=== PATIENT | female | born 1945 | race Caucasian/White ===

== ENCOUNTER 2021-02-22 07:39 | Outpatient (REF) | payer MEDICARE, OTHER, SELFPAY ==
[2021-02-22 11:20] LABS: MANUAL DIFF FLAG NO
[2021-02-22 11:34] LABS: Basophils Absolute Auto 0.1 X10*3/uL (0.0-0.2); Basophils Percent Auto 1.2 % (0-2); Eosinophils Absolute Auto 0.1 X10*3/uL (0.0-0.4); Eosinophils Percent Auto 2.1 % (0-4); Hematocrit 42.5 % (37-47); Hemoglobin 13.8 g/dl (12.0-16.0); Imm Gran Abs Auto 0.01 X10*3/uL (0.00-0.03); Imm Gran Pct Auto 0.2 % (0.0-0.4); Lymphocytes Absolute Auto 0.8 X10*3/uL (1.2-4.9); Lymphocytes Percent Auto 18.5 % (20-40); Mean Corpuscular HGB Conc 32.5 g/dl (31.0-35.0); Mean Corpuscular Hemoglobin 28.9 pg (27.0-33.0); Mean Corpuscular Volume 89.1 fL (80-98); Mean Platelet Volume 10.1 fL (9.4-12.3); Monocytes Absolute Auto 0.3 X10*3/uL (0.1-1.2); Platelet Count 235 X10*3/uL (160-400); Red Blood Count 4.77 X10*6/uL (4.20-5.50); Red Cell Distribution Width 12.8 % (11.0-16.0); White Blood Count 4.3 X10*3/uL (4.8-10.8)
[2021-02-22 12:04] LABS: Thyroid Stimulating Hormone 1.78 uIU/mL (0.32-4.0); Vitamin D 25-OH Total 45.5 ng/mL (>30)
[2021-02-22 12:07] LABS: Alanine Aminotransferase 17 U/L (0-31); Albumin Level 4.3 g/dL (3.5-5.0); Alkaline Phosphatase 58 U/L (39-117); Anion Gap 13 (12-20); Aspartate Amino Transferase 16 U/L (5-31); Bilirubin Total 0.5 mg/dL (0.0-1.0); Blood Urea Nitrogen 13 mg/dL (9-16); Calcium 8.9 mg/dL (8.4-10.2); Carbon Dioxide 26 mmol/L (22-29); Chloride 107 mmol/L (96-108); Cholesterol 208 mg/dL; Estimated Glomerular Filt Rate > 60; Glucose Fasting 83 mg/dL (60-99); HDL Cholesterol 92 mg/dL; LDL Cholesterol Calculated 95 mg/dl; Potassium 4.4 mmol/L (3.3-5.1); Sodium 142 mmol/L (135-145); Total Protein 6.6 g/dL (6.5-8.0); Triglycerides 106 mg/dL
[2021-02-23 13:37] LABS: Calcium (PTHI) 8.9 mg/dL (8.6-10.4); PTHI 60 pg/mL (14-64)
== END 2021-02-22 07:40 | disposition home or self-care (01) ==
LOC: HO.HMGCLDS 07:39
PROVIDERS: Absent Provider Obstetrics & Gynecology; PCP Internal Medicine; Visit Provider Internal Medicine
DX: E78.00 Pure hypercholesterolemia, unspecified (principal); E03.9 Hypothyroidism, unspecified; K58.0 Irritable bowel syndrome with diarrhea; M81.0 Age-related osteoporosis without current pathological fracture
CPT/HCPCS: 36415; 80053; 80061; 82306; 83970; 84443; 85025

== ENCOUNTER 2022-07-27 08:17 | Outpatient (REF) | payer MEDICARE, OTHER, SELFPAY ==
[2022-07-27 11:08] LABS: MANUAL DIFF FLAG NO
[2022-07-27 11:28] LABS: Basophils Absolute Auto 0.1 X10*3/uL (0.0-0.2); Basophils Percent Auto 1.5 % (0-2); Eosinophils Absolute Auto 0.1 X10*3/uL (0.0-0.4); Eosinophils Percent Auto 3.2 % (0-4); Hematocrit 40.6 % (37.0-47.0); Hemoglobin 13.5 g/dl (12.0-16.0); Imm Gran Abs Auto 0.01 X10*3/uL (0.00-0.03); Imm Gran Pct Auto 0.2 % (0.0-0.4); Lymphocytes Absolute Auto 0.9 X10*3/uL (1.2-4.9); Lymphocytes Percent Auto 22.4 % (20-40); Mean Corpuscular HGB Conc 33.3 g/dl (31.0-35.0); Mean Corpuscular Hemoglobin 29.9 pg (27.0-33.0); Mean Corpuscular Volume 89.8 fL (80.0-98.0); Mean Platelet Volume 10.4 fL (9.4-12.3); Monocytes Absolute Auto 0.3 X10*3/uL (0.1-1.2); Monocytes Percent Auto 7.5 % (2-11); Neutrophils Absolute Auto 2.6 x10*3/uL (2.0-8.3); Neutrophils Percent Auto 65.2 % (45-73); Platelet Count 216 X10*3/uL (160-400); Red Blood Count 4.52 X10*6/uL (4.20-5.50); Red Cell Distribution Width 12.9 % (11.0-16.0)
[2022-07-27 11:34] LABS: Alanine Aminotransferase 17 U/L (0-31); Aspartate Amino Transferase 15 U/L (5-31); Estimated Glomerular Filt Rate > 60
[2022-07-27 11:41] LABS: Alanine Aminotransferase 18 U/L (0-31); Albumin Level 4.1 g/dL (3.5-5.0); Alkaline Phosphatase 58 U/L (39-117); Anion Gap 13 (12-20); Aspartate Amino Transferase 18 U/L (5-31); Bilirubin Total 0.3 mg/dL (0.0-1.0); Blood Urea Nitrogen 16 mg/dL (9-16); Calcium 9.2 mg/dL (8.4-10.2); Carbon Dioxide 28 mmol/L (22-29); Chloride 107 mmol/L (96-108); Cholesterol 200 mg/dL; Estimated Glomerular Filt Rate > 60; Glucose Fasting 95 mg/dL (60-99); HDL Cholesterol 83 mg/dL; LDL Cholesterol Calculated 101 mg/dl; Potassium 4.5 mmol/L (3.3-5.1); Sodium 143 mmol/L (135-145); Total Protein 6.4 g/dL (6.5-8.0); Triglycerides 82 mg/dL
[2022-07-27 12:04] LABS: Thyroid Stimulating Hormone 1.31 uIU/mL (0.32-4.0); Vitamin D 25-OH Total 56.1 ng/mL (>30)
== END 2022-07-27 08:18 | disposition home or self-care (01) ==
LOC: HO.HMGCLDS 08:17
PROVIDERS: Absent Provider Internal Medicine Rheumatology; PCP Internal Medicine; Visit Provider Internal Medicine
DX: M19.90 Unspecified osteoarthritis, unspecified site (principal); E78.00 Pure hypercholesterolemia, unspecified; E03.9 Hypothyroidism, unspecified; M79.7 Fibromyalgia; K58.0 Irritable bowel syndrome with diarrhea; F32.4 Major depressive disorder, single episode, in partial remission; M81.0 Age-related osteoporosis without current pathological fracture; Z79.1 Long term (current) use of non-steroidal anti-inflammatories (NSAID)
CPT/HCPCS: 36415; 80053; 80061; 82306; 82565; 84443; 84450; 84460; 85025

== ENCOUNTER 2023-09-05 08:04 | Outpatient (REF) | payer MEDICARE, OTHER, SELFPAY ==
[2023-09-05 11:31] LABS: MANUAL DIFF FLAG NO
[2023-09-05 11:34] LABS: Basophils Absolute Auto 0.1 X10*3/uL (0.0-0.2); Basophils Percent Auto 1.1 % (0-2); Eosinophils Absolute Auto 0.1 X10*3/uL (0.0-0.4); Eosinophils Percent Auto 2.5 % (0-4); Hematocrit 43.2 % (37.0-47.0); Hemoglobin 14.2 g/dl (12.0-16.0); Imm Gran Abs Auto 0.01 X10*3/uL (0.00-0.03); Imm Gran Pct Auto 0.2 % (0.0-0.4); Lymphocytes Absolute Auto 1.1 X10*3/uL (1.2-4.9); Lymphocytes Percent Auto 23.6 % (20-40); Mean Corpuscular HGB Conc 32.9 g/dl (31.0-35.0); Mean Corpuscular Hemoglobin 29.5 pg (27.0-33.0); Mean Corpuscular Volume 89.8 fL (80.0-98.0); Mean Platelet Volume 10.7 fL (9.4-12.3); Monocytes Absolute Auto 0.3 X10*3/uL (0.1-1.2); Monocytes Percent Auto 7.2 % (2-11); Neutrophils Absolute Auto 2.9 x10*3/uL (2.0-8.3); Neutrophils Percent Auto 65.4 % (45-73); Platelet Count 210 X10*3/uL (160-400); Red Blood Count 4.81 X10*6/uL (4.20-5.50); Red Cell Distribution Width 13.1 % (11.0-16.0); White Blood Count 4.5 X10*3/uL (4.8-10.8)
[2023-09-05 12:49] LABS: Alanine Aminotransferase 20 U/L (0-31); Albumin Level 4.2 g/dL (3.5-5.0); Alkaline Phosphatase 60 U/L (39-117); Anion Gap 12 (12-20); Aspartate Amino Transferase 18 U/L (5-31); Bilirubin Total 0.4 mg/dL (0.0-1.0); Blood Urea Nitrogen 14 mg/dL (9-16); Calcium 9.5 mg/dL (8.4-10.2); Carbon Dioxide 25 mmol/L (22-29); Chloride 109 mmol/L (96-108); Cholesterol 205 mg/dL (<200); Estimated Glomerular Filt Rate > 60; Glucose Fasting 98 mg/dL (60-99); HDL Cholesterol 90 mg/dL (>40); LDL Cholesterol Calculated 100 mg/dL (<100); Potassium 4.5 mmol/L (3.3-5.1); Sodium 141 mmol/L (135-145); Thyroid Stimulating Hormone 2.06 uIU/mL (0.32-4.0); Total Protein 6.8 g/dL (6.5-8.0); Triglycerides 78 mg/dL (<150)
== END 2023-09-05 08:05 | disposition home or self-care (01) ==
LOC: HO.HMGCLDS 08:04
PROVIDERS: PCP Internal Medicine; Visit Provider Internal Medicine
DX: E78.00 Pure hypercholesterolemia, unspecified (principal); E03.9 Hypothyroidism, unspecified; M79.7 Fibromyalgia; K58.0 Irritable bowel syndrome with diarrhea
CPT/HCPCS: 36415; 80053; 80061; 84443; 85025

== ENCOUNTER 2024-07-17 11:05 | Outpatient (AMB) | payer MEDICARE, OTHER, SELFPAY ==
--- NOTE | 2024-07-17 11:10 | AM.OFFWIN_ITS ---
Intake Vital Signs 07/17/24 11:13 Height 5 ft 2 in Weight 148 lb BMI 27.1 BP 122/80 Blood Pressure Location Rt brachial Position Sitting Pulse 89 Pulse Source Pulse Oximeter Temp 98.4 F Temp Source Oral Pulse Oximetry (%) 96 Oxygen Delivery Method Room Air Intake Visit Reasons: EP-tooth problem & covid? Intake Note: pt c/o bit through lip after fall this morning on floor at home. and ? Covid infection Patient Tobacco Use Status: Never used Tobacco Allergies No Known Allergies Allergy (Verified 07/17/24 11:10) Do you need a note to return to daycare/school/sports/work: No HPI HPI Comments History of Present Illness Details Patient is a 79-year-old female complaining of an injury to her lower lip that occurred when she tripped over her dog's just prior to arrival today. She states she cut her lip but that her teeth and gums feel fine. It still bleeding a little bit. She also states she has recently had a dry cough for the last few days. She is asking us to test her for COVID. [facility] Social History Patient Tobacco Use Status: Never used Tobacco Review of Systems Const All systems reviewed & are unremarkable except as noted in HPI and below Physical Exam Vital Signs: Last Vital Signs Temp 98.4 F 07/17/24 11:13 Pulse 89 07/17/24 11:13 BP 122/80 07/17/24 11:13 Pulse Ox 96 07/17/24 11:13 Oxygen Delivery Method Room Air 07/17/24 11:13 BMI result Body Mass Index 27.1 Const General: cooperative, healthy appearing, comfortable, no acute distress and well developed Orientation/consciousness: patient oriented x3 Limitations: no limitations HEENT Head: Yes normal to inspection Neck Neck: Yes normal visual inspection and Yes supple Skin Other: v shaped laceration through lower lip to inner lip. does not cross the vermilion border, no injury to the teeth or gums Neuro General: patient oriented x3 Office Procedures Laceration Repair Details: repaired inner lip with 3 (three) 5.0 Monocryl sutures, irrigated with normal saline then injected 2.5 mL of 1% lidocaine without epi then completed repair with 3 sutures Explained risks and benefits to parent: Yes Informed consent given: Yes Location: Lower inner lip Length: 2 cm Anesthesia: 2% lidocaine Irrigation: saline Deep closure: No Skin closure: nylon Technique: simple interrupted Patient tolerated procedure: [place]: [place] [id number]-[id number] Repair face/ears/eyes/nose/lips <2.5cm Procedure code (CPT) selection complete Laceration Repair Details: repaired outer lip with 3 (three) 5.0 Monocryl sutures, cleaned with alcohol wipe, irrigated with normal saline then injected 2.5 mL of 1% lidocaine without epi then completed repair with 3 sutures Inner lip repair performed by Rach Gaston NP, see that lac repair note Laceration repair performed by: Lilian Reid Explained risks and benefits to parent: Yes Informed consent given: Yes Consent signed: No Location: lower outer lip Length: 2.5c Sedation: No Anesthesia: 1% lidocaine Irrigation: saline Preparation: other (Alcohol way) Wound exploration: none Deep closure: No Skin closure: nylon Technique: 3 sutures Topical treatment: dry Tetanus toxoid ordered: Yes Patient tolerated procedure: well [place]: [place] [address]-Ohts Repair face/ears/eyes/nose/lips <2.5cm Procedure code (CPT) selection complete Assessment & Plan Assessment & Plan (1) Lip laceration: Code(s): S01.511A - Laceration without foreign body of lip, initial encounter Qualifiers: Encounter type: initial encounter Qualified Code(s): S01.511A - Laceration without foreign body of lip, initial encounter Plan: Gave Tdap and amoxicillin for prophylaxis. Patient given precautions as below. Patient should return in 5 days for removal of sutures Plan see above Orders: Orders SARS-CoV2/FLU/RSV Today Rach Gaston NP J06.9 - Acute upper respiratory infection, unspecified TDaP Immunization Today Lilian Reid PA-C S01.511A - Laceration without foreign body of lip, initial encounter Medications: New amoxicillin-pot clavulanate 875-125 mg 1 tab PO Q12H 8 tabs 0RF Lilian Reid PA-C Patient Instructions: ?Eat soft foods for two to three days. ?Rinse the mouth with water after eating. ?Avoid spicy or salty foods until the wound is healed. ?Avoid the use of straws (negative pressure may increase ecchymosis or bleeding at the wound site). come back for suture removal in 5 days Coding Level of Care Code New Pt Level 4 (00063) Diagnoses Lip laceration, initial encounter S01.511A Encounter type: initial encounter
[2024-07-17 11:13] VITALS: BP 122/80; PULSE 89; TEMP 36.9; O2SAT 96; BMI 27.1
== END 2024-07-17 13:24 | disposition home or self-care (01) ==
PROVIDERS: PCP Internal Medicine; Visit Provider Registered Nurse
DX: S01.511A Laceration without foreign body of lip, initial encounter (principal); Z23 Encounter for immunization
CPT/HCPCS: 90471; 90715; 99204

== ENCOUNTER 2024-07-17 11:55 | Outpatient (REF) | payer MEDICARE, OTHER, SELFPAY ==
[2024-07-17 14:03] LABS: Influenza A PCR NEGATIVE (Negative); Influenza B PCR NEGATIVE (Negative); Resp Syncy Virus RNA Qual PCR NEGATIVE (Negative); SARS COV2 PCR INHOUSE POSITIVE (Negative)
== END 2024-07-17 11:56 | disposition home or self-care (01) ==
LOC: HO.LAB 11:55
PROVIDERS: Visit Provider Registered Nurse
DX: J06.9 Acute upper respiratory infection, unspecified (principal)
CPT/HCPCS: 0241U

== ENCOUNTER 2024-07-22 10:06 | Outpatient (AMB) | payer MEDICARE, OTHER, SELFPAY ==
--- NOTE | 2024-07-22 10:25 | MHC.OFFWIV ---
Intake Vital Signs 07/22/24 10:26 Height 5 ft 2 in Weight 148 lb BMI 27.1 BP 110/68 Blood Pressure Location Rt brachial Position Sitting Pulse 81 Pulse Source Pulse Oximeter Temp 98.3 F Temp Source Oral Pulse Oximetry (%) 96 Oxygen Delivery Method Room Air Intake Visit Reasons: EP stitch removal Intake Note: pt here for suture removal Patient Tobacco Use Status: Never used Tobacco Allergies No Known Allergies Allergy (Verified 07/22/24 10:25) Medication List - Last Reconciled 07/22/24 by Josephine Gaines MD bupropion HCl SR 200 mg PO QAM celecoxib 200 mg PO DAILY PRN diazepam 5 mg PO DAILY PRN dicyclomine 20 mg PO BID levothyroxine 50 mcg PO DAILY rosuvastatin 10 mg PO BEDTIME sertraline mg PO trazodone 50 mg PO BEDTIME Do you need a note to return to daycare/school/sports/work: No HPI EP stitch removal HPI Details Patient is 79-year-old female came in today for suture removal Sutures were placed in her side of her lip and outside 5 days ago I was able to remove 4 stitches However the stitches inside the mouth to remaining seem to be infected I am prescribing antibiotic to be taken for 3 days patient is to return on Sunday for other 2 sutures to be removed Meanwhile I would recommend to swish and spit with salt and water 3 or 4 times a day Tetanus vaccine is up-to-date [facility] Social History Patient Tobacco Use Status: Never used Tobacco Review of Systems Const All systems reviewed & are unremarkable except as noted in HPI and below Physical Exam Vital Signs: Last Vital Signs Temp 98.3 F 07/22/24 10:26 Pulse 81 07/22/24 10:26 BP 110/68 07/22/24 10:26 Pulse Ox 96 07/22/24 10:26 Oxygen Delivery Method Room Air 07/22/24 10:26 BMI result Body Mass Index 27.1 Const General: no acute distress Orientation/consciousness: patient oriented x3 HEENT Other: 4 sutures removed to remaining inside lower lip Around the sutures there is yellowish discharge Eyes General: appearance normal, both eyes and all related structures Resp Effort & Inspection: normal respiratory effort and able to speak in complete sentences Neuro General: patient oriented x3 Psych Mental Status: mental status grossly normal Assessment & Plan Assessment & Plan (1) Visit for suture removal: Code(s): Z48.02 - Encounter for removal of sutures (2) Infected lip laceration: Code(s): S01.511A - Laceration without foreign body of lip, initial encounter; L08.9 - Local infection of the skin and subcutaneous tissue, unspecified Qualifiers: Encounter type: initial encounter Qualified Code(s): S01.511A - Laceration without foreign body of lip, initial encounter; L08.9 - Local infection of the skin and subcutaneous tissue, unspecified Plan Patient is 79-year-old female came in today for suture removal Sutures were placed in her side of her lip and outside 5 days ago I was able to remove 4 stitches However the stitches inside the mouth to remaining seem to be infected I am prescribing antibiotic to be taken for 3 days patient is to return on Sunday for other 2 sutures to be removed Meanwhile I would recommend to swish and spit with salt and water 3 or 4 times a day Tetanus vaccine is up-to-date Medications: Changed From amoxicillin-pot clavulanate 875-125 mg 1 tab PO Q12H 8 tabs 0RF To amoxicillin-pot clavulanate 875-125 mg 1 tab PO Q12H 6 tabs 0RF 3 days Coding Level of Care Code Est Pt Level 3 (67637) Diagnoses Visit for suture removal Z48.02 Infected lip laceration, initial encounter S01.511A; L08.9 Encounter type: initial encounter
[2024-07-22 10:26] VITALS: BP 110/68; PULSE 81; TEMP 36.8; O2SAT 96; BMI 27.1
== END 2024-07-22 10:44 | disposition home or self-care (01) ==
PROVIDERS: PCP Internal Medicine; Visit Provider Internal Medicine
DX: Z48.02 Encounter for removal of sutures (principal); S01.511A Laceration without foreign body of lip, initial encounter; L08.9 Local infection of the skin and subcutaneous tissue, unspecified
CPT/HCPCS: 99024

== ENCOUNTER 2024-07-25 09:43 | Outpatient (AMB) | payer MEDICARE, OTHER, SELFPAY ==
--- NOTE | 2024-07-25 09:56 | AM.OFFWIN_ITS ---
Intake Vital Signs 07/25/24 09:57 Height 5 ft 2 in Weight 148 lb BMI 27.1 BP 130/70 Blood Pressure Location Rt brachial Position Sitting Pulse 83 Pulse Source Pulse Oximeter Pulse Oximetry (%) 97 Oxygen Delivery Method Room Air Intake Visit Reasons: EP Stitch removal Patient Tobacco Use Status: Never used Tobacco Allergies No Known Allergies Allergy (Verified 07/22/24 10:25) Do you need a note to return to daycare/school/sports/work: No HPI EP Stitch removal HPI Details This is a 79-year-old female patient who presents to the walk-in clinic today for stitch removal in her lip. She was initially seen on 07/17 with lip laceration following a fall. Laceration was sutured. She was given Tdap, and started on Augmentin prophylactically. She returned several days ago on 07/22, due to possible infection at injury/suture site. Several stitches were removed at that time. She was given 3 additional days of abx and asked to return today for remaining 2 stitches to be removed. She is feeling well and is eager to have these removed. She denies any pain in area. She denies any fever or chills or swelling in the mouth. [facility] Social History Patient Tobacco Use Status: Never used Tobacco Review of Systems Const All systems reviewed & are unremarkable except as noted in HPI and below Physical Exam Vital Signs: Last Vital Signs Pulse 83 07/25/24 09:57 BP 130/70 07/25/24 09:57 Pulse Ox 97 07/25/24 09:57 Oxygen Delivery Method Room Air 07/25/24 09:57 BMI result Body Mass Index 27.1 Const General: no acute distress Orientation/consciousness: patient oriented x3 HEENT Other: 2 sutures removed from inside of lower lip without complication. No surrounding redness, swelling, tenderness, or discharge. Eyes General: appearance normal, both eyes and all related structures Resp Effort & Inspection: normal respiratory effort and able to speak in complete sentences Neuro General: patient oriented x3 Psych Appearance: grossly normal Mental Status: mental status grossly normal Assessment & Plan Assessment & Plan (1) Lip laceration: Code(s): S01.511A - Laceration without foreign body of lip, initial encounter Qualifiers: Encounter type: initial encounter Qualified Code(s): S01.511A - Laceration without foreign body of lip, initial encounter Plan: Last 2 sutures easily removed from patient's inner lower lip in the office today. She tolerate this well. Advised to continue to swish warm/salty water for another several days. Reviewed indications to return to the clinic for further evaluation, including development of pain, swelling, tenderness, discharge of previously sutured area. She verbalizes understanding and agrees to plan. (2) Visit for suture removal: Code(s): Z48.02 - Encounter for removal of sutures Plan: Sutures removed as above. Coding Level of Care Code Est Pt Level 3 (92233) Diagnoses Lip laceration, initial encounter S01.511A Encounter type: initial encounter Visit for suture removal Z48.02
[2024-07-25 09:57] VITALS: BP 130/70; PULSE 83; O2SAT 97; BMI 27.1
== END 2024-07-25 10:52 | disposition home or self-care (01) ==
PROVIDERS: PCP Internal Medicine; Visit Provider Nurse Practitioner Family
DX: S01.511D Laceration without foreign body of lip, subsequent encounter (principal); Z48.02 Encounter for removal of sutures
CPT/HCPCS: 15853; 99213

== ENCOUNTER 2024-12-19 07:51 | Outpatient (REF) | payer MEDICARE, OTHER, SELFPAY ==
--- OUTSIDE RECORDS SUMMARY | 2024-12-19 07:55 | XMS_ITS ---
Author Organization Trip Veloz DO, [facility] Address [address], [place] [id number] Care Team Providers Care Power Press Tender Name Role Phone Trip Veloz Primary Care Provider ALLERGIES No Known Allergies REASON FOR VISIT 6 month f/u, Follow up hypercholesterolemia, hypothyroidism MEDICATIONS Medication SIG (Take, Route, Frequency, Duration) Notes Start Date End Date Status Sertraline HCl 100 MG 3 tablets Orally O nce a day for 90 days Active Rosuvastatin Calcium 10 MG 1 tablet Oral ly Once a day Active Sertraline HCl 100 MG 3 tablets Orally O nce a day for 30 day(s) 03/12/2024 Active Dicyclomine HCl 20 MG 1 tablet as needed Orally Twice a day for 30 days Active Librax 5-2.5 MG 1 capsule Orally Onc e a day Active CeleBREX 200 MG 1 capsule as needed Orally Once a day Active diazePAM 5 MG 1 tablet as needed Orally Once a day at night 09/12/2023 Active oxyCODONE-Acetaminophen 5-325 MG 1 tablet as needed Orally every 6 hrs 03/08/2022 Active buPROPion HCl ER (SR) 200 MG 1 tablet in the morning Orally Once a day Active traZODone HCl 50 MG 1 tablet at bedtime Orally Once a day Active Levothyroxine Sodium 50 MCG 1 tablet in the morning on an empty stomach Orally Once a day Active Vitamin D 50 MCG (1999) 1 capsule Ora lly Once a day Active Cetirizine HCl 10 MG 1 tablet Orally Onc e a day Active SOCIAL HISTORY Tobacco Use: Social History Observation Description Date Details (start date - stop date) Never Smoker NA - NA Sex Assigned At : Social History Observation Description Sex Assigned At Unknown Tobacco Use/Smoking Question Answer Notes Patient is a nonsmoker Additional Findings: Tobacco Non-User Cu rrent non-smoker, currently using no form of tobacco Alcohol Screen Question Answer Notes Did you have a drink contain ing alcohol in the past year? Yes How often did you have a dri nk containing alcohol in the past year? Monthly or less (1 point) How many drinks did you have on a typical day when you were drinking in the past year? 1 or 2 drinks (0 point) How often did you have 6 or more drinks on one occasion in the past year? Never (0 point) Points 1 Interpretation Negative VITAL SIGNS BMI 27.07 kg/m2 03/12/2024 Blood pressure systolic 114 mm Hg 03/12/20 24 Blood pressure diastolic 74 mm Hg 024 Height 62.00 in 03/12/2024 Weight 148 lbs 03/12/2024 Encounters Encounter Location Date Provider Diagnosis Trip Veloz DO, [address] [id number] 03/12/2024 Trip Veloz Hypercholesterolemia E78.00 ; Acquired hypothyroidism E03.9 ; Irritable bowel syndrome with diarrhea K58.0 ; Fibromyalgia M79.7 ; Osteoporosis, unspecified osteoporosis type, unspecified pathological fracture presence M81.0 and Major depressive disorder with single episode, 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 ASSESSMENTS Encounter Date Diagnosis Assessment Notes Treatment Notes Treatment Clinical Notes 03/12/2024 Hypercholesterolemia (ICD-10 - E78.00) 03/12/2024 Acquired hypothyroid ism (ICD-10 - E03.9) 03/12/2024 Irritable bowel synd vincent with diarrhea (ICD-10 - K58.0) 03/12/2024 Fibromyalgia (ICD-10 - M79.7) 03/12/2024 Osteoporosis, unspec ified osteoporosis type, unspecified pathological fracture presence (ICD-10 - M81.0) 03/12/2024 Major depressive dis order with single episode, in partial remission (ICD-10 - F32.4) PLAN OF TREATMENT Medication Medication Name Sig Start Date Stop Date Notes Rosuvastatin Calcium 10 MG 1 tablet Orally Once a day Sertraline HCl 100 MG 3 tablets Orally O nce a day for 30 day(s) 03/12/2024 Dicyclomine HCl 20 MG 1 tablet as needed Orally Twice a day for 30 days Librax 5-2.5 MG 1 capsule Orally Onc e a day CeleBREX 200 MG 1 capsule as needed Orally Once a day diazePAM 5 MG 1 tablet as needed O rally Once a day at night 09/12/2023 oxyCODONE-Acetaminophen 5-325 MG 1 table t as needed Orally every 6 hrs 03/08/2022 buPROPion HCl ER (SR) 200 MG 1 tablet in the morning Orally Once a day traZODone HCl 50 MG 1 tablet at bedtime Orally Once a day Levothyroxine Sodium 50 MCG 1 tablet in the morning on an empty stomach Orally Once a day Vitamin D 50 MCG (1999 UT) 1 capsule Ora lly Once a day Cetirizine HCl 10 MG 1 tablet Orally Once a day Next Appt Details Follow Up: 6 Months, Reason: follow up visit Progress Notes * Examination Category Sub-Category Detail Notes General Examination GENERAL APPEARANCE: in no ac [place] distress, well developed, well nourished HEAD: normocephalic, atrau matic HEART: no murmurs, regular rate and rhythm, S1, S2 normal LUNGS: clear to auscultatio n bilaterally ABDOMEN: normal, bowel sounds present, soft, nontender, nondistended SKIN: warm and dry EXTREMITIES: no edema PSYCH: alert, oriented, cog nitive function intact History and Physical Notes * HPI (History of Present Illness) Category Sub-Category Detail Notes Depression Screening PHQ-9 Little inte rest or pleasure in doing things: Not at all Feeling down, depressed, or hopeless: No t at all Trouble falling or staying asleep, or sl eeping too much: Not at all Feeling tired or having little energy: N ot at all Poor appetite or overeating: Not at all Feeling bad about yourself o r that you are a failure, or have let yourself or your family down: Not at all Trouble concentrating on thi ngs, such as reading the newspaper or watching television: Not at all Moving or speaking so slowly that other people could have noticed; or the opposite, being so fidgety or restless that you have been moving around a lot more than usual: Not at all Thoughts that you would be b nica off or of hurting yourself in some way: Not at all Total Score: 0 Interpretation and Intervention Depression Rudie catalina Findings: Negative Follow-Up for Depression: : Review of PH Q-9 found negative result; no follow-up needed Treatment Goals Continue current med ication Self-Managment Goals Exercise at least 3 xs per week Fall Risk Fall History Have you had two or more fal ls in the past year?: No Have you had any falls with injury in th e past year?: No Fall Risk Assessment:: No falls in the p ast year Communication Needs [facility] Communication Needs - [facility] Hearing Impairment?: Yes wears hearing aids Vision Impairment?: Yes wears glasses Cognitive Impairment?: No SDOH Questions SDOH Questions In the past year have you been worried about losing your housing?: No In the past year have you or any family members you live with been unable to get any of the following when it was really needed? Check all that apply:: None
--- OUTSIDE RECORDS SUMMARY | 2024-12-19 07:55 | XMS_ITS | Patient Health Record ---
Author Organization Trip Veloz DO, [facility] Address [address], [place] [id number] Care Team Providers Care Wind Commissioning Technician Name Role Phone Trip Veloz Primary Care Provider [phone] ALLERGIES No Known Allergies REASON FOR REFERRAL No Information MEDICATIONS Medication SIG (Take, Route, Frequency, Duration) Notes Start Date End Date Status diazePAM 5 MG 1 tablet as needed Orally Once a day at night 09/12/2023 Active oxyCODONE-Acetaminophen 5-325 MG 1 tablet as needed Orally every 6 hrs 03/08/2022 Active CeleBREX 200 MG 1 capsule as needed Orally Once a day Active Vitamin D 50 MCG (1999 UT) 1 capsule Ora lly Once a day Active Rosuvastatin Calcium 10 MG 1 tablet Oral ly Once a day for 90 days Active Cetirizine HCl 10 MG 1 tablet Orally Onc e a day Active Rosuvastatin Calcium 10 MG 1 tablet Oral ly Once a day for 30 day(s) 09/17/2024 Active Levothyroxine Sodium 50 MCG 1 tablet in the morning on an empty stomach Orally Once a day for 90 days Active buPROPion HCl ER (SR) 200 MG 1 tablet in the morning Orally Once a day Active Dicyclomine HCl 20 MG 1 tablet Orally On ce a day Active Sertraline HCl 100 MG 3 tablets Orally O nce a day Active traZODone HCl 50 MG 1 tablet at bedtime Orally Once a day for 90 days Active IMMUNIZATIONS Vaccine Route Administration Date Status Comme nts Td (adult) Unknown 01/12/2010 Administered DECLINE: Influenza Unknown 02/04/2014 Administered DECLINE: Pneumococcal Unknown 02/04/2014 Administered Pneumococcal - PPSV23 IM Intramuscular 09/29/2014 Administ ered Influenza Quad IM Intramuscular 08/22/2019 Administered Influenza High Dose IM Intramuscular 08/31/2021 Administer ed Influnza High Dose Quad Unknown 07/22/2020 Administered COVID-19 Pfizer BioNTech Unknown 08/18/2021 Administere d COVID-19 Pfizer BioNTech Unknown 02/05/2021 Administere d COVID-19 Pfizer BioNTech Unknown 01/15/2021 Administere d COVID-19 Pfizer Bivalent Unknown 08/03/2022 Administere d COVID-19 Pfizer BioNTech Unknown 03/23/2022 Administere d Influenza Quad IM Intramuscular 09/06/2022 Administered Influenza High Dose IM Intramuscular 09/12/2023 Administer ed TDaP Unknown 07/17/2024 Administered Influenza Unknown 09/29/2014 Refused Influenza Unknown 12/21/2015 Refused Influenza Unknown 08/01/2016 Refused Influenza Unknown 10/31/2017 Refused Influenza Unknown 11/01/2018 Refused SOCIAL HISTORY Tobacco Use: Social History Observation [...] Never (0 point) Points 1 Interpretation Negative PROBLEMS Problem Type ICD Code Onset Dates Problem Status W/U Status Risk SNOMED Code Notes Problem Fibromyalgia (M79.7) Active confirmed 2 5762109 Problem Unspecified hearing loss, left ear (H91.92) Active confirmed Hear ing loss (69333646) Problem Irritable bowel syndrome with diarrhea (K58.0) Active confirmed 373253169 Problem Acquired hypothyroid ism (E03.9) Active confirmed 227216496 Problem Major depressive disorder with single episode, in partial remission (F32.4) Active confirmed 00090267 Problem Hypercholesterolemia (E78.00) Active confirmed 52966350 Problem Osteoporosis, unspecified osteoporosis type, unspecified pathological fracture presence (M81.0) Active confirmed 61320556 VITAL SIGNS Blood pressure diastolic 70 mm Hg 09/17/2024 Height 62.00 in 09/17/2024 Blood pressure systolic 132 mm Hg 09/17/2024 Weight 151 lbs 09/17/2024 BMI 27.62 kg/m2 09/17/2024 Encounters Encounter Location Date Provider Diagnosis Trip Mustafa Magdiel ROBBINS, [facility] [address], [place] [id number] 03/12/2024 Trip Veloz Hypercholesterolemia E78.00 ; Acquired hypothyroidism E03.9 ; Irritable bowel syndrome with diarrhea K58.0 ; Fibromyalgia M79.7 ; Osteoporosis, unspecified osteoporosis type, unspecified pathological fracture presence M81.0 and Major depressive disorder with single episode, 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 Trip Veloz DO, [facility] [address], [place] [id number] 09/17/2024 Trip Veloz Fibromyalgia M79.7 ; Acquired hypothyroidism E03.9 ; Hypercholesterolemia E78.00 ; Irritable bowel syndrome with diarrhea K58.0 ; Major depressive disorder with single episode, 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 and Osteoporosis, unspecified osteoporosis type, unspecified pathological fracture presence M81.0 ASSESSMENTS Encounter Date Diagnosis Assessment Notes Treatment Notes Treatment Clinical Notes 03/12/2024 Acquired hypothyroid ism (ICD-10 - E03.9) 03/12/2024 Hypercholesterolemia (ICD-10 - E78.00) 09/17/2024 Fibromyalgia (ICD-10 - M79.7) 09/17/2024 Acquired hypothyroid ism (ICD-10 - E03.9) 03/12/2024 Irritable bowel synd vincent with diarrhea (ICD-10 - K58.0) 09/17/2024 Hypercholesterolemia (ICD-10 - E78.00) 03/12/2024 Fibromyalgia (ICD-10 - M79.7) 09/17/2024 Irritable bowel synd vincent with diarrhea (ICD-10 - K58.0) 03/12/2024 Osteoporosis, unspec ified osteoporosis type, unspecified pathological fracture presence (ICD-10 - M81.0) 09/17/2024 Major depressive dis order with single episode, in partial remission (ICD-10 - F32.4) 03/12/2024 Major depressive dis order with single episode, in partial remission (ICD-10 - F32.4) 09/17/2024 Osteoporosis, unspec ified osteoporosis type, unspecified pathological fracture presence (ICD-10 - M81.0) PLAN OF TREATMENT Pending Test Test Name Order Date CBC w DIFF 09/17/2024 LIPOPROTEIN FRACTIONATION (LIPID PANEL) 09/17/2024 PROFILE, FASTING 09/17/2024 TSH (THYROID STIMULATING HORMONE) 2023 VITAMIN D 25-OH TOTAL 09/17/2024 Insurance Providers Payer Name Payer Address Payer Phone Subscriber Number Group Number Insured Name Patient Relationship to Insured Coverage Start Date Coverage End Date MEDICARE [address] [place] [phone] [id number] Lata Bryson Self - patient is the insured [facility] [address] [place] [phone] [id number] Lata Bryson Self - patient is the insured MEDICAL (GENERAL) HISTORY Medical History History ICD Code hypercholesterolemia hypothyroidism fibromyalgia osteopenia low back pain bells palsy times three carpal tunnel syndrome sahu's cyst arthritis depression migraine headaches uterine fibroids pneumonia, age 4 chronic fatigue irritable bowel syndrome S/P mastectomy, bilateral V45.71 allergies Surgical History Surgery Date(Month/Year) lobular carcinoma in situ s/ p B/L modified radical mastectomies and breast reconstruction pilonidal cyst excision ganglion cyst, right leg Lasik surgery [facility] BCC s/p excision, left shoulder tonsillectomy and adenoidectomy
--- OUTSIDE RECORDS SUMMARY | 2024-12-19 07:55 | XMS_ITS ---
Author Organization Trip Veloz DO, FAC Address [address] [place], [place] [id number] Care Team Providers Care Inspector Of Weights And Measures Name Role Phone Trip Veloz Primary Care Provider ALLERGIES No Known Allergies REASON FOR VISIT 6 month f/u, Follow up fibromyalgia MEDICATIONS Medication SIG (Take, Route, Frequency, Duration) Notes Start Date End Date Status CeleBREX 200 MG 1 capsule as needed Orally Once a day Active buPROPion HCl ER (SR) 200 MG 1 tablet in the morning Orally Once a day Active traZODone HCl 50 MG 1 tablet at bedtime Orally Once a day Active Dicyclomine HCl 20 MG 1 tablet Orally On ce a day Active Sertraline HCl 100 MG 3 tablets Orally O nce a day Active Vitamin D 50 MCG [...] empty stomach Orally Once a day Active diazePAM 5 MG 1 tablet as needed Orally Once a day at night 09/12/2023 Active oxyCODONE-Acetaminophen 5-325 MG 1 tablet as needed Orally every 6 hrs 03/08/2022 Active SOCIAL HISTORY Tobacco Use: Social History [...] Points 1 Interpretation Negative VITAL SIGNS BMI 27.62 kg/m2 09/17/2024 Blood pressure systolic 132 mm Hg 09/17/20 24 Blood pressure diastolic 70 mm Hg 024 Height 62.00 in 09/17/2024 Weight 151 lbs 09/17/2024 Encounters Encounter Location Date Provider Diagnosis Trip Veloz DO, [address] [phone] 09/17/2024 Trip Veloz Fibromyalgia M79.7 ; Acquired hypothyroidism E03.9 ; Hypercholesterolemia E78.00 ; Irritable bowel syndrome with diarrhea K58.0 ; Major depressive disorder with single episode, 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 and Osteoporosis, unspecified osteoporosis type, unspecified pathological fracture presence M81.0 ASSESSMENTS Encounter Date Diagnosis Assessment Notes Treatment Notes Treatment Clinical Notes 09/17/2024 Fibromyalgia (ICD-10 - M79.7) 09/17/2024 Acquired hypothyroid ism (ICD-10 - E03.9) 09/17/2024 Hypercholesterolemia (ICD-10 - E78.00) 09/17/2024 Irritable bowel synd vincent with diarrhea (ICD-10 - K58.0) 09/17/2024 Major depressive dis order with single episode, in partial remission (ICD-10 - F32.4) 09/17/2024 Osteoporosis, unspec ified osteoporosis type, unspecified pathological fracture presence (ICD-10 - M81.0) PLAN OF TREATMENT Medication Medication Name Sig Start Date Stop Date Notes CeleBREX 200 MG 1 capsule as needed Orally Once a day buPROPion HCl ER (SR) 200 MG 1 tablet in the morning Orally Once a day traZODone HCl 50 MG 1 tablet at bedtime Orally Once a day Dicyclomine HCl 20 MG 1 tablet Orally Once a day Sertraline HCl 100 MG 3 tablets Orally O nce a day Vitamin D 50 MCG (1999 UT) 1 capsule Ora lly Once a day Cetirizine HCl 10 MG 1 tablet Orally Once a day Rosuvastatin Calcium 10 MG 1 tablet Oral ly Once a day for 30 day(s) 09/17/2024 Levothyroxine Sodium 50 MCG 1 tablet in the morning on an empty stomach Orally Once a day diazePAM 5 MG 1 tablet as needed O rally Once a day at night 09/12/2023 oxyCODONE-Acetaminophen 5-325 MG 1 table t as needed Orally every 6 hrs 03/08/2022 Pending Test Test Name Order Date CBC w DIFF 09/17/2024 LIPOPROTEIN FRACTIONATION (LIPID PANEL) 09/17/2024 PROFILE, FASTING 09/17/2024 TSH (THYROID STIMULATING HORMONE) 2023 VITAMIN D 25-OH TOTAL 09/17/2024 Next Appt Details Follow Up: 6 Months, Reason: follow up visit,review lab work Progress Notes * Examination Category Sub-Category Detail Notes General Examination GENERAL APPEARANCE: in no ac be[place] distress, well developed, well nourished HEAD: normocephalic, atrau matic HEART: no murmurs, regular rate and rhythm, S1, S2 normal LUNGS: clear to auscultatio n bilaterally ABDOMEN: normal, bowel sounds present, soft, nontender, nondistended SKIN: warm and dry EXTREMITIES: no edema PSYCH: alert, oriented, cog nitive function intact
--- OUTSIDE RECORDS SUMMARY | 2024-12-19 07:55 | XMS_ITS ---
Author Organization IRLANDA Regalado DO Address [address] [place] [phone] Care Team Providers Care Waterworks Pump Station Operator Name Role Phone Trip Veloz Primary Care Provider REASON FOR VISIT Refills MEDICATIONS Medication SIG (Take, Route, Frequency, Duration) Notes Start Date End Date Status Levothyroxine Sodium 50 MCG 1 tablet in the morning on an empty stomach Orally Once a day for 90 days Active Encounters Encounter Location Date Provider Diagnosis [facility], [facility] [address] [place] [phone] 09/18/2023 Trip Veloz Acquired hypothyroid ism E03.9 ASSESSMENTS Encounter Date Diagnosis Assessment Notes Treatment Notes Treatment Clinical Notes 09/18/2023 Acquired hypothyroidism (ICD-10 - E03.9) PLAN OF TREATMENT Medication Medication Name Sig Start Date Stop Date Notes Levothyroxine Sodium 50 MCG 1 tablet in the morning on an empty stomach Orally Once a day for 90 days
[2024-12-19 10:20] LABS: MANUAL DIFF FLAG NO
[2024-12-19 10:29] LABS: Basophils Absolute Auto 0.1 X10*3/uL (0.0-0.2); Basophils Percent Auto 1.1 % (0-2); Eosinophils Absolute Auto 0.1 X10*3/uL (0.0-0.4); Hematocrit 43.5 % (37.0-47.0); Hemoglobin 14.2 g/dl (12.0-16.0); Lymphocytes Absolute Auto 0.9 X10*3/uL (1.2-4.9); Lymphocytes Percent Auto 19.7 % (20-40); Mean Corpuscular HGB Conc 32.6 g/dl (31.0-35.0); Mean Corpuscular Hemoglobin 28.9 pg (27.0-33.0); Mean Corpuscular Volume 88.4 fL (80.0-98.0); Mean Platelet Volume 10.6 fL (9.4-12.3); Monocytes Absolute Auto 0.3 X10*3/uL (0.1-1.2); Monocytes Percent Auto 6.9 % (2-11); Neutrophils Absolute Auto 3.2 x10*3/uL (2.0-8.3); Neutrophils Percent Auto 70.3 % (45-73); Platelet Count 212 X10*3/uL (160-400); Red Blood Count 4.92 X10*6/uL (4.20-5.50); Red Cell Distribution Width 13.4 % (11.0-16.0); White Blood Count 4.5 X10*3/uL (4.8-10.8)
[2024-12-19 11:22] LABS: Alanine Aminotransferase 23 U/L (0-31); Albumin Level 4.4 g/dL (3.5-5.0); Alkaline Phosphatase 59 U/L (39-117); Anion Gap 11 (12-20); Aspartate Amino Transferase 23 U/L (5-31); Bilirubin Total 0.4 mg/dL (0.0-1.0); Blood Urea Nitrogen 16 mg/dL (9-16); Carbon Dioxide 25 mmol/L (22-29); Chloride 109 mmol/L (96-108); Cholesterol 212 mg/dL (<200); Estimated Glomerular Filt Rate > 60; Glucose Fasting 91 mg/dL (60-99); HDL Cholesterol 90 mg/dL (>40); LDL Cholesterol Calculated 105 mg/dL (<100); Potassium 4.1 mmol/L (3.3-5.1); Sodium 141 mmol/L (135-145); Total Protein 7.2 g/dL (6.5-8.0); Triglycerides 86 mg/dL (<150)
[2024-12-19 11:29] LABS: Thyroid Stimulating Hormone 1.82 uIU/mL (0.32-4.0); Vitamin D 25-OH Total 67.8 ng/mL (>30)
== END 2024-12-19 07:52 | disposition home or self-care (01) ==
LOC: HO.HMGCLDS 07:51
PROVIDERS: PCP Internal Medicine; Visit Provider Internal Medicine
DX: M81.0 Age-related osteoporosis without current pathological fracture (principal); M79.7 Fibromyalgia; E03.9 Hypothyroidism, unspecified; E78.00 Pure hypercholesterolemia, unspecified; K58.0 Irritable bowel syndrome with diarrhea; F32.4 Major depressive disorder, single episode, in partial remission
CPT/HCPCS: 36415; 80053; 80061; 82306; 84443; 85025

== ENCOUNTER 2024-12-30 13:49 | Outpatient (AMB) | payer MEDICARE, OTHER, SELFPAY ==
--- NOTE | 2024-12-30 13:54 | A.OFFPC_ITS ---
Vital Signs 12/30/24 14:01 Height 5 ft 1.25 in Weight 155 lb BMI 29.0 BP 118/56 L Blood Pressure Location Rt brachial Pulse 75 Pulse Source Pulse Oximeter Temp 97 F Pulse Oximetry (%) 97 Intake Visit Reasons: follow up Intake Note: weight gain Allergies No Known Allergies Allergy (Verified 12/30/24 14:21) Medication List - Last Reconciled 12/30/24 by Kennedi Kc PA-C bupropion HCl SR 200 mg PO QAM celecoxib 200 mg PO DAILY PRN cetirizine (All Day Allergy (cetirizine)) 10 mg PO DAILY PRN cholecalciferol (vitamin D3) 50 mcg PO DAILY diazepam 5 mg PO DAILY PRN dicyclomine 20 mg PO BID levothyroxine 50 mcg PO DAILY oxycodone-acetaminophen 5-325 mg 1 tab PO Q6H PRN rosuvastatin 10 mg PO BEDTIME sertraline mg PO trazodone 50 mg PO BEDTIME PFSH Medical History (Updated 12/30/24 @ 15:32 by Kennedi Kc PA-C) Overweight (BMI 25.0-29.9) Irritable bowel syndrome History of pneumonia Chronic fatigue Uterine fibroid Migraine aura occurring with and without headache Depression Arthritis Christine cyst Carpal tunnel syndrome Mclaughlin's palsy Osteopenia Fibromyalgia Hypothyroidism Mild hypercholesterolemia Surgical History (Updated 12/30/24 @ 14:11 by Kennedi Kc PA-C) History of colonoscopy (~03/22/16) History of mastectomy (~1986) Social History Patient Tobacco Use Status: Never used Tobacco Physical exam (Primary Care) Vital Signs: Last Vital Signs Temp 97 F 12/30/24 14:01 Pulse 75 12/30/24 14:01 BP 118/56 L 12/30/24 14:01 Pulse Ox 97 12/30/24 14:01 Care Plan Goal for BP management: 130/80 at goal BMI result Body Mass Index 29.0 BMI Assessment/Plan discussion: High BMI High, discussed plan: lifestyle, weight reduction, dietary, physical activity and alcohol moderation Tobacco/Smoking Status: Tobacco use Status Patient Tobacco Use Status Never used Tobacco 12/30/24 13:55 Coding Level of Care Code Est Pt Level 4 (63007) Complex EM visit Add On G2211 Diagnoses Migraine aura occurring with and without headache G43.109 Irritable bowel syndrome K58.9 Depression F32.A Arthritis M19.90 Christine cyst M71.20 Fibromyalgia M79.7 Hypothyroidism E03.9 Mild hypercholesterolemia E78.00 Overweight (BMI 25.0-29.9) E66.3 Assessment & Plan Assessment & Plan (1) Migraine aura occurring with and without headache: Code(s): G43.109 - Migraine with aura, not intractable, without status migrainosus Category: Medical Plan: Condition has resolved will continue to monitor. (2) Irritable bowel syndrome: Code(s): K58.9 - Irritable bowel syndrome, unspecified Category: Medical Plan: Patient being followed by gastroenterology. Patient currently on dicyclomine 20 mg b.i.d.. Patient currently on vitamin-D supplement. Condition is chronic and stable continue to monitor. (3) Depression: Code(s): F32.A - Depression, unspecified Category: Medical Plan: Patient currently on bupropion SR 200 mg in the morning, diazepam 5 mg daily p.r.n., sertraline p.o. daily. Trazodone at bedtime. Condition is chronic and stable continue to monitor. (4) Arthritis: Code(s): M19.90 - Unspecified osteoarthritis, unspecified site Category: Medical Plan: Patient currently on Celecoxib 200 mg daily PRN. Patient currently on oxycodone/Tylenol 1 tablet every 6 hours as needed. Condition is chronic and stable continue to monitor. (5) Christine cyst: Code(s): M71.20 - Synovial cyst of popliteal space [Christine], unspecified knee Category: Medical Plan: Condition is chronic and stable continue to monitor. (6) Fibromyalgia: Code(s): M79.7 - Fibromyalgia Category: Medical Plan: Patient currently on Celecoxib 200 mg daily PRN. Patient currently on oxycodone/Tylenol 1 tablet every 6 hours as needed. Condition is chronic and stable continue to monitor. (7) Hypothyroidism: Code(s): E03.9 - Hypothyroidism, unspecified Category: Medical Plan: Patient currently on levothyroxine 50 mcg daily. Condition is chronic and stable continue to monitor. (8) Mild hypercholesterolemia: Code(s): E78.00 - Pure hypercholesterolemia, unspecified Category: Medical Plan: Patient currently on lovastatin 10 mg at bedtime. Condition is chronic and stable continue to monitor. (9) Overweight (BMI 25.0-29.9): Code(s): E66.3 - Overweight Category: Medical Plan: Patient to follow-up with hypnosis therapy. Better her diet and exercise regimen. Condition is chronic and stable continue to monitor. Plan Plan - Monitor and manage hypercholesterolemia with rosuvastatin; ensure compliance with daily administration. - Maintain current management for depression and IBS with the existing medication regimen. - Recommend continuing yoga for maintaining physical fitness and managing fi bromyalgia symptoms. - Address weight concerns by encouraging modifications in exercise routine and potential exploration of hypnosis therapy. - Stress non-pharmacologic strategies and stress management to mitigate fibromyalgia-related pain. - Encourage consistent medication adherence for managing depression and hypertension. Patient Instructions: Patient Instructions - Continue all current medications as prescribed. - Practice yoga regularly as you have been doing. - Engage in moderated dietary habits, focusing on a balanced, healthy intake. - Follow up biannually to continuously assess health status. - Consider pursuing hypnosis therapy for aiding weight management. - Report any new symptoms or concerns as they arise. - Adhere to planned blood work and follow the regimen for cholesterol management. Scribe Plan - Not visible on output: History of Present Illness The patient is a 79-year-old female presenting with a follow-up appointment. She has a significant past medical history of fibromyalgia, which includes musculoskeletal pain exacerbated by stress and formerly exacerbated migraines. Fibromyalgia effects have been mitigated somewhat since penitentiary in 2003 as she no longer suffers from migraine headaches following her cessation from work. This chronic condition continues to impact her everyday life, contributing to musculoskeletal discomfort and restricting her activities, as she reports limitations in balance and physical abilities as compared to a decade ago. Additionally, she has a history of IBS, occasionally affecting her gastrointestinal functioning, and she manages this with the medication dicyclomine. She also has a longstanding history of depression managed with bupropion and sertraline. The patient was diagnosed with breast cancer in 1986 and underwent a bilateral mastectomy after a small, rare, initially unilateral lump was found?subsequent testing revealed a bilateral risk, leading to the decision for the complete removal of breast tissue. The patient also reports prior symptoms consistent with carpal tunnel syndrome in her wrists, though a hand specialist did not confirm this diagnosis. There is a mention of historical uterine fibroids, though they seem to be of less current concern. Hypercholesterolemia is managed pharmacologically with rosuvastatin but recent lab results indicate elevated cholesterol levels. Despite daily thyroid medication, the patient notes weight issues, attributing it, in part, to hypothyroidism concerns even though thyroid levels are medically deemed normal. She expresses a desire to control her weight through exercise, diet, and possibly hypnosis aimed at reducing appetite. The patient's arthritis, particularly in the knees, contributes to mobility issues. She also reports being on as-needed diazepam for anxiety management. Social History - Retired since 2003 and reports an active lifestyle with yoga practiced three times weekly. - , and her assists with household tasks. - Has a routine of healthy eating and does not believe dietary effects to be the primary contributor to recent weight gain. - Engages in self-directed health management, rebuffing the need for dietitian consultations. - Expresses comfort and independence in utilizing technology like an iPad. Review of Systems - Musculoskeletal: Reports arthritis and Christine?s cysts; denies current carpal tunnel syndrome. - Neurological: Denies current migraines. - Endocrine: Concerned about weight gain. - Hematologic/Lymphatic: Denies current need for mammography. - Psychiatric: Reports history of depression. Physical Exam Appearance: Alert. Oriented X3. No acute distress. Head: Normal external exam. Normocephalic. Atraumatic. Eyes: Pupils are equal, round, and reactive to light. Extraocular movements intact. Conjunctiva and sclera normal. Eyelids normal. Ears: External auditory canal normal. Tympanic membranes normal. Throat: Pharynx normal. Uvula midline. Moist mucous membranes. Neck: Normal inspection. Neck supple. Full range of motion. No adenopathy. Thyroid Normal. No meningeal signs. No neck mass noted. Cardiovascular: Normal heart rate and rhythm. Heart sound normal. No murmurs noted. Pulses normal throughout. Respiratory: No respiratory distress. Painless inspiration. Breath sounds normal. No wheezes/rales/rhonchi noted. Chest nontender. No accessory muscle usage noted or decreased air movement noted. Abdomen: Soft and nontender. Bowel sounds normal in all 4 quadrants. No di stention noted. No organomegaly noted. No visible injury noted. Back: No costovertebral angle tenderness. Full range of motion noted. Skin: Skin warm and dry. Normal skin color. Normal skin turgor. No rashes/lesions/lacerations noted. Extremities: No lower extremity edema. Extremities exhibit normal range of motion. Extremities nontender. Neuro: Oriented X 3. No motor deficit. No sensory deficit. Reflexes normal. Results - Labs: Total cholesterol of 212 mg/dL (elevated), LDL cholesterol 105 mg/dL, and normal thyroid levels. Plan - Monitor and manage hypercholesterolemia with rosuvastatin; ensure compliance with daily administration. - Maintain current management for depression and IBS with the existing medication regimen. - Recommend continuing yoga for maintaining physical fitness and managing fibromyalgia symptoms. - Address weight concerns by encouraging modifications in exercise routine and potential exploration of hypnosis therapy. - Stress non-pharmacologic strategies and stress management to mitigate fibromyalgia-related pain. - Encourage consistent medication adherence for managing depression and hypertension. Patient was informed and verbally consented to the use of an ambient scribe for clinic note documentation during this visit. Discussion Notes I discussed with the patient her chronic medical conditions and the importance of continuing her current medication regimen for hypertension, depression, and hypercholesterolemia. We reviewed her concerns regarding weight gain and hypothyroidism, reassuring her that her thyroid levels are within normal range and weight management involves active lifestyle changes. The patient was informed about the effects of stress on fibromyalgia symptoms. We talked about the potential benefits of hypnosis for weight management and explored her interest in this approach. She agreed to try lifestyle modifications and remained in touch for possibly documenting a recommendation for the hypnosis session. All questions were addressed effectively. We will continue follow-ups biannually to monitor her overall progress and adjust treatment as necessary. Patient Instructions - Continue all current medications as prescribed. - Practice yoga regularly as you have been doing. - Engage in moderated dietary habits, focusing on a balanced, healthy intake. - Follow up biannually to continuously assess health status. - Consider pursuing hypnosis therapy for aiding weight management. - Report any new symptoms or concerns as they arise. - Adhere to planned blood work and follow the regimen for cholesterol management.
[2024-12-30 14:01] VITALS: BP 118/56; PULSE 75; TEMP 36.1; O2SAT 97; BMI 29.0
--- OUTSIDE RECORDS SUMMARY | 2024-12-30 14:48 | XMS_ITS ---
Author Organization IRLANDA Regalado DO Address [address] [place] [phone] Care Team Providers Care Roofing Tile Sorter Name Role Phone Trip Veloz Primary Care Provider REASON FOR VISIT Refills MEDICATIONS Medication SIG (Take, Route, Frequency, Duration) Notes Start Date End Date Status Levothyroxine Sodium 50 MCG 1 tablet in the morning on an empty stomach Orally Once a day for 90 days Active Encounters Encounter Location Date Provider Diagnosis [facility], [facility] [address] [place] [phone] 09/18/2023 Trip Veloz Acquired hypothyroid ism E03.9 ASSESSMENTS Encounter Date Diagnosis Assessment Notes Treatment Notes Treatment Clinical Notes 09/18/2023 Acquired hypothyroidism (ICD-10 - E03.9) PLAN OF TREATMENT Medication Medication Name Sig Start Date Stop Date Notes Levothyroxine Sodium 50 MCG 1 tablet in the morning on an empty stomach Orally Once a day for 90 days
--- OUTSIDE RECORDS SUMMARY | 2024-12-30 14:49 | XMS_ITS | Patient Health Record ---
Author Organization Trip Veloz DO, FAC Address [address] [place], [place] [phone] Care Team Providers Care Aerial Tram Operator Name Role Phone Trip Veloz Primary Care Provider ALLERGIES No Known Allergies REASON FOR REFERRAL [...] Notes Problem Fibromyalgia (M79.7) Active confirmed 2 [id number] Problem Unspecified hearing loss, left ear (H91.92) Active confirmed Hear ing loss (53617441) Problem Irritable bowel syndrome with diarrhea (K58.0) Active confirmed [id number] Problem Acquired hypothyroid ism (E03.9) Active confirmed 914905215 Problem Major depressive disorder with single episode, in partial remission (F32.4) Active confirmed 76730911 Problem Hypercholesterolemia (E78.00) Active confirmed 34238841 Problem Osteoporosis, unspecified osteoporosis type, unspecified pathological fracture presence (M81.0) Active confirmed 25206964 VITAL SIGNS Blood pressure diastolic 70 mm Hg 09/17/2024 Height 62.00 in 09/17/2024 Blood pressure systolic 132 mm Hg 09/17/2024 Weight 151 lbs 09/17/2024 BMI 27.62 kg/m2 09/17/2024 Encounters Encounter Location Date Provider Diagnosis Trip Mustafa Magdiel ROBBINS, [facility] [address] [place], [place] [phone] 03/12/2024 Trip Veloz Hypercholesterolemia E78.00 ; Acquired hypothyroidism E03.9 ; Irritable bowel syndrome with diarrhea K58.0 ; Fibromyalgia M79.7 ; Osteoporosis, unspecified osteoporosis type, unspecified pathological fracture presence M81.0 and Major depressive disorder with single episode, 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 Trip Veloz DO, [facility] [address], [place] [phone] 09/17/2024 Trip Veloz Fibromyalgia M79.7 ; Acquired [...] Date MEDICARE [address] [place] [phone] [id number] Lata Bryson Self - patient is the insured [facility]3] [address] [place] [phone] [id number] Lata Bryson Self - patient is [...]
--- OUTSIDE RECORDS SUMMARY | 2024-12-30 14:49 | XMS_ITS ---
Author Organization Trip eVloz DO, [facility] Address [address] [place], [place] [phone] Care Team Providers Care Long Goods Drier Name Role Phone Trip Veloz Primary Care Provider [phone] ALLERGIES No Known Allergies REASON FOR VISIT [...] Location Date Provider Diagnosis Trip Veloz DO, [address] [phone] 03/12/2024 Trip Veloz Hypercholesterolemia E78.00 ; Acquired [...] General Examination GENERAL APPEARANCE: in no ac [place] distress, well developed, well nourished HEAD: normocephalic, [...] in the p ast year Communication Needs [facility] Communication Needs - [facility] Hearing Impairment?: Yes wears hearing aids [...]
--- OUTSIDE RECORDS SUMMARY | 2024-12-30 14:49 | XMS_ITS ---
Author Organization Trip Veloz DO, FAC Address [address] [place], [place] [phone] Care Team Providers Care Bark Tanner Name Role Phone Trip Veloz Primary Care [...] Location Date Provider Diagnosis Trip Veloz DO, [address] [phone] 09/17/2024 Trip Veloz Fibromyalgia M79.7 ; Acquired [...] General Examination GENERAL APPEARANCE: in no ac [place] distress, well developed, well nourished HEAD: normocephalic, atrau matic HEART: no murmurs, regular rate and rhythm, S1, S2 normal LUNGS: clear to auscultatio n bilaterally ABDOMEN: normal, bowel sounds present, soft, nontender, nondistended SKIN: warm and dry EXTREMITIES: no edema PSYCH: alert, oriented, cog nitive function intact
== END 2024-12-30 14:23 | disposition home or self-care (01) ==
LOC: HO.HMCSH 13:49
PROVIDERS: PCP Internal Medicine; Visit Provider Physician Assistant Medical
DX: G43.109 Migraine with aura, not intractable, without status migrainosus (principal); K58.9 Irritable bowel syndrome, unspecified; F32.A Depression, unspecified; M19.90 Unspecified osteoarthritis, unspecified site; M71.20 Synovial cyst of popliteal space [Baker], unspecified knee; M79.7 Fibromyalgia; E03.9 Hypothyroidism, unspecified; E78.00 Pure hypercholesterolemia, unspecified; E66.3 Overweight

== ENCOUNTER → 2024-12-30 13:49 | Outpatient (BNVA) | payer MEDICARE, OTHER, SELFPAY | PROVIDERS: PCP Internal Medicine; Visit Provider Physician Assistant Medical | DX: G43.109 Migraine with aura, not intractable, without status migrainosus (principal); K58.9 Irritable bowel syndrome, unspecified; F32.A Depression, unspecified; M19.90 Unspecified osteoarthritis, unspecified site; M79.7 Fibromyalgia; M71.20 Synovial cyst of popliteal space [Baker], unspecified knee; E03.9 Hypothyroidism, unspecified; E78.00 Pure hypercholesterolemia, unspecified; E66.3 Overweight; Z68.29 Body mass index [BMI] 29.0-29.9, adult; Z71.3 Dietary counseling and surveillance | CPT/HCPCS: 99212 ==

== ENCOUNTER 2025-03-10 09:08 | Outpatient (AMB) | payer MEDICARE, OTHER, SELFPAY ==
[2025-03-10 08:59] VITALS: BP 119/70; PULSE 70; RESP 14; TEMP 36.6; O2SAT 97; BMI 27.5
--- NOTE | 2025-03-10 08:59 | A.OFFPC_ITS ---
Vital Signs 03/10/25 08:59 Height 5 ft 1.25 in Weight 147 lb BMI 27.5 BP 119/70 Respiration 14 Pulse 70 Pulse Source Pulse Oximeter Temp 97.8 F Temp Source Temporal Artery Scan Pulse Oximetry (%) 97 Oxygen Delivery Method Room Air Intake Visit Reasons: medication review Supervisor Electronics Assembly Required: No Accompanied by: Self / Same As Patient Allergies No Known Allergies Allergy (Verified 03/10/25 09:28) Medication List - Last Reconciled 03/10/25 by Tc Scruggs MD bupropion HCl SR 200 mg PO QAM celecoxib 200 mg PO DAILY PRN cetirizine (All Day Allergy (cetirizine)) 10 mg PO DAILY PRN cholecalciferol (vitamin D3) 50 mcg PO DAILY diazepam 5 mg PO DAILY PRN dicyclomine 20 mg PO BID levothyroxine 50 mcg PO DAILY rosuvastatin 10 mg PO BEDTIME sertraline 300 mg PO DAILY sertraline 300 mg (3 x 100 mg) PO DAILY trazodone 50 mg PO BEDTIME Tobacco use date assessed: 03/10/25 Fall risk assessment: 1 Fall in past year (slipped on ice) Last assessed Fall Risk: 03/10/25 Dental Screening Dental Screen Date: 03/10/25 Did you have a dental visit in the last 12 months?: Yes Did you have a dental problem in the last 6 months where you did not have access to dental care?: No Was dental information given to patient?: Patient has dentist [facility] Medical History Overweight (BMI 25.0-29.9) Irritable bowel syndrome History of pneumonia Chronic fatigue Uterine fibroid Migraine 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 Father No problems noted. Social History Housing: House Alcohol intake: current Alcohol intake frequency: holidays/special occasions only Patient Tobacco Use Status: Never used Tobacco service: No Current occupational status: retired Cognitive needs: No Hearing needs: Yes (b/l hearing aids) Vision needs: Yes (rx glasses) Questionnaire PHQ-9 Over the last 2 weeks, how often have you been bothered by any of the following problems? 1. Little interest or pleasure in doing things: not at all 2. Feeling down, depressed, or hopeless: not at all 3. Trouble falling or staying asleep, or sleeping too much: not at all 4. Feeling tired or having little energy: not at all 5. Poor appetite or overeating: not at all 6. Feeling bad about yourself - or that you are a failure or have let yourself or your family down: not at all 7. Trouble concentrating on things, such as reading the newspaper or watching television: not at all 8. Moving or speaking so slowly that other people could have noticed. Or the opposite - being so fidgety or restless that you have been moving around a lot more than usual: not at all 9. Thoughts that you would be better off or of hurting yourself in some way: not at all Total score: 0 Depression Screening Interpretation: Negative Depression Screening Done: Yes Source: Developed by Drs. Trip Gonzalez, Sophie Orr, Jose Briseno and colleagues, with an educational noah from [email or web address]. Thrive Questionnaire Date Thrive assessed: 03/10/25 I am a: Patient What is your living situation today?: I have a steady place to live Within the past 12 months, did the food you bought not last and you didn't have the money to get more?: Never true Within the past 12 months, did you worry whether your food would run out before you got money to buy more?: Never true Do you have trouble paying for medicines?: No Do you have trouble getting transportation to medical appointments?: No Do you have trouble paying your heating and electricity bill?: No Do you have trouble taking care of your child, family member or friend?: No Do you have trouble with day-to-day activities such as bathing, preparing meals, shopping, managing finances, etc.?: No Are you currently unemployed and looking for a job?: No Are you interested in more education?: No Please select the resources that you would like help with: None Currently or been in a relationship where the following occur: No concerns reported THRIVE Score: 0 AUDIT C Alcohol Use Questionnaire (AUDIT-C) 1. How often do you have a drink containing alcohol?: Monthly or less 2. How many drinks containing alcohol do you have on a typical day when you are drinking?: 1 or 2 3. How often do you have six or more drinks on one occasion?: Never Total Score: 1 CHRISTOPHER-7 AMB Questionnaire CHRISTOPHER-7 Date CHRISTOPHER - 7 assessed: 03/10/25 Feeling nervous, anxious, or on edge: 0 = Not at all Not being able to stop or control worryin = Not at all Worrying too much about different things: 0 = Not at all Trouble relaxin = Not at all Being so restless that it is hard to sit still: 0 = Not at all Becoming easily annoyed or irritable: 0 = Not at all Feeling afraid as if something awful might happen: 0 = Not at all Total CHRISTOPHER-7 score (0-4 normal; 5-9 mild; 10-14 moderate; 15-21 severe): 0 Source: Developed by Drs. Trip Gonzalez, Sophie Orr, Jose Briseno and colleagues, with an educational noah from [email or web address]. Physical exam (Primary Care) Vital Signs: Last Vital Signs Temp 97.8 F 03/10/25 08:59 Pulse 70 03/10/25 08:59 Resp 14 03/10/25 08:59 BP 119/70 03/10/25 08:59 Pulse Ox 97 03/10/25 08:59 Oxygen Delivery Method Room Air 03/10/25 08:59 Care Plan Goal for BP management: Blood pressure is in range. BMI result Body Mass Index 27.5 Tobacco/Smoking Status: Tobacco use Status Tobacco use date assessed 03/10/25 03/10/25 09:01 Patient Tobacco Use Status Never used Tobacco 03/10/25 09:16 PHQ-9: PHQ-9 Score PHQ-9: Total score 0 03/10/25 09:16 Depression Screening Interpretation: Negative Thrive Assessment: Date of Thrive Assessment Date Thrive assessed 03/10/25 03/10/25 09:01 Currently or been in a relationship where the following occur: No concerns reported Advance Care Planning discussion: Exists, not on file Date of discussion: 03/10/25 Who was present: Patient Forms completed: Health Care Proxy Time spent: 1-15 minutes, not on file Actual minutes spent: 5 Coding Level of Care Code Est Pt Level 4 (70996) Complex EM visit Add On G2211 Diagnoses Fibromyalgia M79.7 Depression F32.A Additional Codes Vital Signs *Quality* - Advance Care Planning discussion: Exists, not on file ([id number]) Vital Signs *Quality* - Time spent: 1-15 minutes, not on file ([id number]) Assessment & Plan Assessment & Plan (1) Fibromyalgia: Code(s): M79.7 - Fibromyalgia Category: Medical Plan: Chronic condition. Currently no medication for pain control. Intermittent use of Celebrex. Encouraged to exercise. (2) Depression: Code(s): F32.A - Depression, unspecified Category: Medical Plan: Patient takes sertraline 300 mg once a day. She believes that she needs extra dosage as her absorption is poor. Has been taking sertraline at 300 mg for many years. Continue the same regimen. Plan History of Present Illness The patient is a 79-year-old female presenting with ongoing management of fibromyalgia. She has been living with fibromyalgia for some time, reporting ongoing musculoskeletal pain. Although she used Celecoxib for relief, she only uses it before engaging in activities such as yoga due to the loss of efficacy with regular use. She has some limitations in daily living activities, such as vacuuming, where she requires assistance. Her condition also involves functional restrictions due to arthritis. Dupuytren?s contracture, a long-standing concern, remains stable. Her depression is managed with 300 mg of Sertraline daily, a high dose prompted by absorption challenges. 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 - Engages in yoga for physical activity. 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 - Capable of walking and driving independently. - Eats out socially. - Interested in contemporary art. Review of Systems - Musculoskeletal: Reports chronic aches and pains associated with fibromyalgia and arthritis. - Psychiatric: Reports a history of depression, currently managed with medication. - Musculoskeletal: Reports Dupuytren?s contracture without recent worsening. - Musculoskeletal: Denies any new symptoms outside of those associated with known conditions. Physical Exam General: Cooperative and healthy appearing Nutritional Appearance: Well nourished Orientation/consciousness: Patient oriented x3 Limitations: No limitations Head: Normal to inspection General: Appearance normal, both eyes and all related structures Neck: Normal visual inspection Chest: Normal palpation of entire chest wall Respiratory: N ormal respiratory effort Neurology: Patient oriented x3, limited by arthritis in hands and wrists, Dupuytren's contracture noted. Results - Labs: Blood work done in December was within normal limits. Plan I recommended that the patient continue to manage her fibromyalgia with Celecoxib on an as-needed basis, particularly before engaging in physical activities like yoga, to maintain efficacy. Her depression will be continually treated with 300 mg of Sertraline, a high dosage appropriate due to her absorption considerations, with a prescription provided. No new immediate changes were planned for fibromyalgia or depression management. I instructed her to return for a follow-up in six months, ensuring that updated laboratory results are available for review to align with her ongoing health management. Patient was informed and verbally consented to the use of an ambient scribe for clinic note documentation during this visit. Discussion Notes I discussed with the patient the importance of managing her fibromyalgia with selective use of Celebrex when she anticipates physical exertion, such as routine yoga sessions, to optimize pain management. We also covered her current depression management, reiterating that her dosage of Sertraline due to absorption issues is appropriate and designed to maintain therapeutic levels, given her history. I emphasized the need for regular follow-up, including laboratory tests such as blood work before her six-month appointment. The patient expressed understanding and agreement with the outlined plan, and I ensured all her current prescriptions were updated. Patient Instructions - Continue to take Celebrex as needed, particularly before physical activities. - Continue taking Sertraline at 300 mg per day as prescribed. - Schedule and complete blood work before the next follow-up in six months. - Contact medical services if new symptoms appear or existing symptoms significantly worsen. Medications: New sertraline 300 mg (3 x 100 mg) PO DAILY 270 tabs 1RF
== END 2025-03-10 09:29 | disposition home or self-care (01) ==
LOC: HO.HMCSH 09:09
PROVIDERS: PCP Internal Medicine; Visit Provider Internal Medicine
DX: M79.7 Fibromyalgia (principal); F32.A Depression, unspecified; Z00.00 Encounter for general adult medical examination without abnormal findings

== ENCOUNTER → 2025-03-10 09:08 | Outpatient (BNVA) | payer MEDICARE, OTHER, SELFPAY | PROVIDERS: PCP Internal Medicine; Visit Provider Internal Medicine | DX: M79.7 Fibromyalgia (principal); F32.A Depression, unspecified | CPT/HCPCS: 99212 ==

== ENCOUNTER 2025-07-20 07:53 | Outpatient (REF) | payer MEDICARE, OTHER, SELFPAY ==
--- OUTSIDE RECORDS SUMMARY | 2025-07-20 07:58 | XMS_ITS | Clinical Summary ---
Author Organization [facility] Address [address] [place] [address] [address] [place] [address] Phone Care Team Providers Care Slasher Runner Name Role Phone Trip Veloz DO Primary Care Provider Allergies No known active allergies Medications buPROPion (WELLBUTRIN SR) 200 MG SR 12 hr tablet 05/29/2025 Active dicyclomine (BENTYL) 20 mg tablet Take 1 tablet by mouth 2 (two) times a day. 03/04/2025 Active levothyroxine (SYNTHROID, LEVOTHROID) 50 MCG tablet Take 1 tablet by mouth every morning. 05/18/2025 Active rosuvastatin (CRESTOR) 10 MG tablet take 1 tablet (10 mg) orally bedtime 05/13/2025 Active sertraline (ZOLOFT) 100 MG tablet Take 3 tablets by mouth every morning. 05/17/2025 Active Encounters Date Type Department Care Team Description 06/03/2025 10:30 AM EDT Office Visit [facility] at [address] [place] [address] Edelmira Mcgovern PA-C Impacted cerumen of both ears (Primary Dx) from Last 3 Months Social History Tobacco Use Types Packs/Day Years Used Date Smoking Tobacco: Never Assessed Education Answer Date Recorded Are you interested in more education? Not on jacklyn e 06/03/2025 Are you concerned about learning? Not on file 06/03/2025 No 06/03/2025 No 06/03/2025 Digital Access Answer Date Recorded No 06/03/2025 No 06/03/2025 Reliable internet access at home? Not on file 06/03/2025 Device with a working camera? Not on file Comments Unknown Sex and Gender Information Value Date Recorded Sex Assigned at Not on file Legal Sex Female 10:23 AM EDT Gender Identity Not on file Sexual Orientation Not on file Last Filed Vital Signs Vital Sign Reading Time Taken Comments Blood Pressure 130/74 06/03/2025 10:53 AM EDT Pulse 75 06/03/2025 10:53 AM EDT Temperature - - Respiratory Rate 16 06/03/2025 10:53 AM EDT Oxygen Saturation 98% 06/03/2025 10:53 AM EDT Inhaled Oxygen Concentration - - Weight - - Height - - Body Mass Index - - Plan of Treatment Health Maintenance Due Date Last Done Comments LIPID PANEL 1947 TSH LEVEL 1947 DEPRESSION SCREENING 1959 SMOKING Hx and SMOKELESS TOBACCO SCREENING 1960 HEPATITIS C SCREENING 1965 PNEUMOCOCCAL VACCINES (50+ years) (1 of 1 - PCV) 1997 ZOSTER VACCINES (1 of 2) 1997 OSTEOPOROSIS SCREENING INITIAL (ONE-TIME) 2012 RSV VACCINE (1 - 1-dose 75+ series) 2022 INFLUENZA VACCINE (#1) 2025 , 09/06/2022, 08/31/2021, Additional history exists COVID-19 VACCINE ( season) 2025 08/03/2022, 03/23/2022, 08/18/2021, Additional history exists Adult Td,Tdap Booster 07/17/2034 07/17/2024 HEPATITIS A VACCINES Aged Out No long er eligible based on patient's age to complete this topic HIB VACCINES Aged Out No longer eligi ble based on patient's age to complete this topic MENINGOCOCCAL VACCINES (ACWY) Aged Out No longer eligible based on patient's age to complete this topic MENINGOCOCCAL VACCINES (B) Aged Out N o longer eligible based on patient's age to complete this topic Medical Devices Not on file Insurance [facility] MEDICARE SUPPLEMENT MEDICARE PART A & B [facility] MEDICARE SUPPLEMENT MEDICARE PART A & B [facility] MEDICARE SUPPLEMENT MEDICARE PART A & B [facility] MEDICARE SUPPLEMENT MEDICARE PART A & [place] [address] [place] [address] MEDICARE SUPPLEMENT MEDICARE PART A & B [facility] MEDICARE SUPPLEMENT MEDICARE PART A & B Care Teams Slasher Runner Relationship Specialty Start Date End Date Trip Veloz DO [address] [place] [id number] PCP - General Internal Medicine 06/03/25 Additional Source Comments The information contained in this document represents components of the legal health record. It is not the complete legal health record.[facility]
[2025-07-20 14:00] LABS: Appearance Urine Turbid; Glucose Urine UA Negative (Negative); PH 5.5 (5.0-9.0); Specific Gravity - Urine 1.020 (1.005-1.025); UMIC TRIGGER UA YES
[2025-07-20 14:08] LABS: Hematocrit 41.4 % (37.0-47.0); Hemoglobin 13.8 g/dl (12.0-16.0); Mean Corpuscular HGB Conc 33.3 g/dl (31.0-35.0); Mean Corpuscular Hemoglobin 29.7 pg (27.0-33.0); Mean Corpuscular Volume 89.0 fL (80.0-98.0); NRBC Abs Auto 0.000 X10*3/uL (0.0-0.012); NRBC Pct Auto 0.0 /100WBC (0.0-0.2); Platelet Count 219 X10*3/uL (160-400); Red Blood Count 4.65 X10*6/uL (4.20-5.50); White Blood Count 4.0 X10*3/uL (4.8-10.8)
[2025-07-20 14:50] LABS: Alanine Aminotransferase 22 U/L (0-31); Albumin Level 4.3 g/dL (3.5-5.0); Alkaline Phosphatase 62 U/L (39-117); Anion Gap 11 (12-20); Aspartate Amino Transferase 22 U/L (5-31); Blood Urea Nitrogen 18 mg/dL (9-16); Calcium 8.9 mg/dL (8.4-10.2); Carbon Dioxide 26 mmol/L (22-29); Chloride 110 mmol/L (96-108); Cholesterol 209 mg/dL (<200); Estimated Glomerular Filt Rate > 60; HDL Cholesterol 84 mg/dL (>40); Potassium 4.4 mmol/L (3.3-5.1); Sodium 143 mmol/L (135-145); Total Protein 6.6 g/dL (6.5-8.0); Triglycerides 80 mg/dL (<150)
[2025-07-20 15:13] LABS: Thyroid Stimulating Hormone 1.67 uIU/mL (0.32-4.0)
== END 2025-07-20 07:54 | disposition home or self-care (01) ==
LOC: HO.HMGCLDS 07:53
PROVIDERS: PCP Internal Medicine; Visit Provider Internal Medicine
DX: E78.00 Pure hypercholesterolemia, unspecified (principal); E03.9 Hypothyroidism, unspecified
CPT/HCPCS: 36415; 80048; 80061; 80076; 81001; 81003; 84443; 85027

== ENCOUNTER 2025-08-11 08:16 | Outpatient (AMB) | payer MEDICARE, OTHER, SELFPAY ==
--- NOTE | 2025-08-11 08:18 | A.OFFPC_ITS ---
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 Father No problems noted. Social History Housing: House Alcohol intake: current Alcohol intake frequency: holidays/special occasions only Patient Tobacco Use Status: Never used Tobacco service: No Current occupational status: retired Cognitive needs: No Hearing needs: Yes (b/l hearing aids) Vision needs: Yes (rx glasses) Questionnaire PHQ-9 Over the last 2 weeks, how often have you been bothered by any of the following problems? 1. Little interest or pleasure in doing things: not at all 2. Feeling down, depressed, or hopeless: not at all 3. Trouble falling or staying asleep, or sleeping too much: not at all 4. Feeling tired or having little energy: not at all 5. Poor appetite or overeating: not at all 6. Feeling bad about yourself - or that you are a failure or have let yourself or your family down: not at all 7. Trouble concentrating on things, such as reading the newspaper or watching television: not at all 8. Moving or speaking so slowly that other people could have noticed. Or the opposite - being so fidgety or restless that you have been moving around a lot more than usual: not at all 9. Thoughts that you would be better off or of hurting yourself in some way: not at all Total score: 0 Depression Screening Interpretation: Negative Depression Screening Done: Yes Source: Developed by Drs. Trip Gonzalez, Sophie Orr, Jose Briseno and colleagues, with an educational noah from [employer]. Thrive Questionnaire Date Thrive assessed: 03/10/25 I am a: Patient What is your living situation today?: I have a steady place to live Within the past 12 months, did the food you bought not last and you didn't have the money to get more?: Never true Within the past 12 months, did you worry whether your food would run out before you got money to buy more?: Never true Do you have trouble paying for medicines?: No Do you have trouble getting transportation to medical appointments?: No Do you have trouble paying your heating and electricity bill?: No Do you have trouble taking care of your child, family member or friend?: No Do you have trouble with day-to-day activities such as bathing, preparing meals, shopping, managing finances, etc.?: No Are you currently unemployed and looking for a job?: No Are you interested in more education?: No Please select the resources that you would like help with: None Currently or been in a relationship where the following occur: No concerns re ported THRIVE Score: 0 AUDIT C Alcohol Use Questionnaire (AUDIT-C) 1. How often do you have a drink containing alcohol?: Monthly or less 2. How many drinks containing alcohol do you have on a typical day when you are drinking?: 1 or 2 3. How often do you have six or more drinks on one occasion?: Never Total Score: 1 CHRISTOPHER-7 AMB Questionnaire CHRISTOPHER-7 Date CHRISTOPHER - 7 assessed: 03/10/25 Source: Developed by Drs. Trip Gonzalez, Sophie Orr, Jose Briseno and colleagues, with an educational noah from [employer]. Physical exam (Primary Care) Vital Signs: Last Vital Signs Temp 96.6 F L 08/11/25 08:22 BP 116/64 08/11/25 08:22 Pulse Ox 97 08/11/25 08:22 BMI result Body Mass Index 26.6 Tobacco/Smoking Status: Tobacco use Status Tobacco use date assessed 03/10/25 08/11/25 08:24 Patient Tobacco Use Status Never used Tobacco 08/11/25 08:24 PHQ-9: PHQ-9 Score PHQ-9: Total score 0 08/11/25 08:24 Depression Screening Interpretation: Negative Thrive Assessment: Date of Thrive Assessment Date Thrive assessed 03/10/25 08/11/25 08:24 Currently or been in a relationship where the following occur: No concerns reported Coding Level of Care Code Est Pt Level 4 (29842) Complex EM visit Add On G2211 Diagnoses Fibromyalgia M79.7 Assessment & Plan Assessment & Plan (1) Fibromyalgia: Code(s): M79.7 - Fibromyalgia Category: Medical Plan: History of Present Illness - The patient is a 80-year-old female presenting with concerns about allergic rhinitis and medication management. - Allergic rhinitis: The patient has a history of severe allergies, previously managed with allergy shots, and currently uses cetirizine (Zyrtec) for symptom control. - Fibromyalgia: Managed with as-needed Celebrex, the patient avoids daily use to maintain its effectiveness. - Sciatica: The patient associates her sciatica with fibromyalgia. - Recent lab results from July 20, 2025, were normal, including kidney and liver functions, with an LDL cholesterol level of 109 mg/dL. - The patient engages in regular physical activity, walking two to [id number] miles. Social History - The patient engages in regular physical activity, walking two to [id number]-half miles. Review of Systems - Respiratory: Reports persistent nasal discharge, described as a steady leak, without nasal congestion. - Neurological: Reports difficulty sleeping occasionally, for which she uses diazepam as needed. Physical Exam General: Cooperative and healthy appearing Nutritional Appearance: Well nourished Orientation/consciousness: Patient oriented x3 Limitations: No limitations Head: Normal to inspection General: Appearance normal, both eyes and all related structures Neck: Normal visual inspection Chest: Normal palpation of entire chest wall Respiratory: Patient reports a steady nasal leak, but no congestion or blockage. ormal respiratory effort Neurology: Patient oriented x3, reports frizz in fingers due to fibromyalgia. Results - Labs: Recent blood work from July 20, 2025, showed no anemia, normal kidney and liver functions, and an LDL cholesterol level of 109 mg/dL. Plan - Prescribe cetirizine (Zyrtec) for allergic rhinitis management, with the option to add nasal spray if symptoms persist. - Refill diazepam prescription for occasional use to aid sleep. - Prescribe Celebrex for fibromyalgia management, to be used as needed. Discussion Notes I discussed with the patient the management of her allergic rhinitis, including the use of cetirizine and the potential addition of a nasal spray if symptoms persist. We also reviewed her fibromyalgia management with Celebrex and the occasional use of diazepam for sleep disturbances. I confirmed that her recent lab results were normal and advised her to continue her current medications and physical activity. Follow-up was scheduled for six months. Patient Instructions - Take cetirizine (Zyrtec) as prescribed for allergies. Consider nasal spray if symptoms persist. - Use diazepam only as needed for sleep issues. - Take Celebrex as needed for fibromyalgia pain. - Continue regular physical activity, such as walking. - Follow up in six months or sooner if symptoms worsen. Medications: New diazepam 5 mg PO DAILY PRN 30 tabs 0RF anxiety Changed From cetirizine (All Day Allergy (cetirizine)) 10 mg PO DAILY PRN To cetirizine (All Day Allergy (cetirizine)) 10 mg PO DAILY 90 tabs 0RF From celecoxib 200 mg PO DAILY PRN To celecoxib 200 mg PO DAILY 90 caps 0RF
[2025-08-11 08:22] VITALS: BP 116/64; TEMP 35.9; O2SAT 97; BMI 26.6
--- OUTSIDE RECORDS SUMMARY | 2025-08-11 08:31 | XMS_ITS | Clinical Summary ---
Author Organization [facility] Address [address] [place] [address] [address] [place] [address] Phone Care Team Providers Care Manager Water Wastewater Name Role Phone Trip Veloz DO Primary Care Provider [phone] Allergies No known active allergies Medications buPROPion [...] Office Visit [facility] at [address] [place] [address] Edelmira Mcgovern PA-C Impacted cerumen of both [...] topic Medical Devices Not on file Insurance [facility] MEDICARE SUPPLEMENT MEDICARE PART A & B [facility] MEDICARE SUPPLEMENT MEDICARE PART A & B [facility] MEDICARE SUPPLEMENT MEDICARE PART A & B [facility] MEDICARE SUPPLEMENT MEDICARE PART A & [place] [address] [address] [place] [address] MEDICARE SUPPLEMENT MEDICARE PART A & B [facility] MEDICARE SUPPLEMENT MEDICARE PART A & B Care Teams Manager Water Wastewater Relationship Specialty Start Date End Date Trip Veloz DO [address] [place] [id number] PCP - General Internal Medicine 06/03/25 Additional Source Comments The information contained in this document represents components of the legal health record. It is not the complete legal health record.[facility]
== END 2025-08-11 08:39 | disposition home or self-care (01) ==
LOC: HO.HMCSH 08:16
PROVIDERS: PCP Internal Medicine; Visit Provider Internal Medicine
DX: M79.7 Fibromyalgia (principal)

== ENCOUNTER → 2025-08-11 08:16 | Outpatient (BNVA) | payer MEDICARE, OTHER, SELFPAY | PROVIDERS: PCP Internal Medicine; Visit Provider Internal Medicine | DX: M79.7 Fibromyalgia (principal); J30.9 Allergic rhinitis, unspecified; M54.30 Sciatica, unspecified side | CPT/HCPCS: 96127; 99212 ==